=== PATIENT | male | born 1955 | race Caucasian/White ===

== ENCOUNTER 2017-01-15 13:05 | Inpatient (IN) | payer MEDICAID ==
[~2017-01-15] VITALS: Ht 180.3 cm; Wt 81.6 kg
[2017-01-15 13:51] LABS: BASOPHILS 0.1 % (0-2); EOSINOPHILS 0.1 % (0-7); HEMATOCRIT 38.8 % (42.0-54.0); HEMOGLOBIN 12.4 g/dL (13.5-17.5); IMMATURE GRANULOCYTES 0.5 % (0-5); LYMPHOCYTES 4.8 % (15-50); MCH 28.1 pg (26.0-34.0); MEAN PLATELET VOLUME 10.5 fL (7.4-10.4); MONOCYTES 5.9 % (2-11); NEUTROPHILS 88.6 % (40-80); PLATELET COUNT 154 10x3/uL (130-400); RBC 4.41 10x6/uL (4.20-6.10); RDW 13.5 % (11.5-14.5)
[2017-01-15 13:59] LABS: APTT 20.4 SECONDS (22.8-39.4); INR 1.31 (0.85-1.17); PROTIME 16.1 SECONDS (11.6-15.0)
[2017-01-15 14:00] LABS: ALBUMIN 2.8 g/dL (3.4-5.0); ALKALINE PHOSPHATASE 65 U/L (46-116); ALT (SGPT) 17 U/L (10-68); BILIRUBIN - TOTAL 0.67 mg/dL (0.2-1.3); CALC OSMOLALITY 284 mosm/kg (275-300); CALCIUM 7.1 mg/dL (8.5-10.1); CARBON DIOXIDE 27.7 mmol/L (21.0-32.0); CHLORIDE - SERUM 103 mmol/L (98-107); CREATININE - SERUM 1.7 mg/dL (0.6-1.3); GLUCOSE 101 mg/dL (74-106); POTASSIUM - SERUM 3.9 mmol/L (3.5-5.1); PROTEIN - SERUM 5.9 g/dL (6.4-8.2); SODIUM 142 mmol/L (136-145); UREA NITROGEN 17 mg/dL (7-18); eGFR NON AFRICAN AMERICAN 44 mL/min (90-120)
[2017-01-15 14:31] LABS: APPEARANCE HAZY (CLEAR); BILIRUBIN NEGATIVE (NEGATIVE); COLOR YELLOW (YELLOW); GLUCOSE NEGATIVE (NEGATIVE); KETONE NEGATIVE (NEGATIVE); NITRITE NEGATIVE (NEGATIVE); PROTEIN TRACE mg/dL (NEGATIVE); UDS - AMPHET NEGATIVE QUAL (NEGATIVE); UDS - BARB NEGATIVE QUAL (NEGATIVE); UDS - BENZO POSITIVE QUAL (NEGATIVE); UDS - COCAINE NEGATIVE QUAL (NEGATIVE); UDS - OPIATE NEGATIVE QUAL (NEGATIVE); UDS - PCP NEGATIVE QUAL (NEGATIVE); UDS - THC NEGATIVE QUAL (NEGATIVE); UROBILINOGEN NORMAL (NORMAL)
[2017-01-15 14:32] LABS: MAGNESIUM - SERUM 1.7 mg/dL (1.8-2.4)
[2017-01-15 14:33] LABS: BACTERIA FEW /hpf (NONE SEEN); EPITHELIAL CELLS RARE /hpf (0-5); WHITE CELLS - URINE 0-5 /hpf (0-5)
[2017-01-15 14:33] LABS: CREATINE KINASE 824 UL (21-232)
[2017-01-15 14:35] LABS: CKMB 5.3 U/L (0.0-3.6)
--- NOTE | 2017-01-15 19:18 | NUR ---
RECIEVED PT TO FLOOR FROM ED. PT IS ORIENTED TO SELF ONLY AT THIS TIME. IV IS PATENT AND SALINE LOC AT THIS TIME. O2 @ 2 PER NASAL CANNULA. PT IS AMBULATORY WITH ASSISTANCE BUT IS ABLE TO TURN SELF IN BED FOR COMFORT AND SKIN CARE. PT DENIES ANY PAIN AT THIS TIME. NO NEEDS ARE VERBALIZED AT THIS TIME. FAMILY IS AT THE BEDSIDE. SIDE RAILS ARE UP X 3. BED IS IN LOWEST POSITION. EFRAÍN MAT IS PLACED ON FOR SAFETY. CALL LIGHT IS WITHIN REACH.
--- NOTE | 2017-01-15 19:20 | NUR ---
CALLED RADIO COMMENTATOR AND WAS INFORMED THAT THERE ARE NO MONITORS AVAILABLE AT THIS TIME. NAME PUT DOWN ON THE LIST.
--- NOTE | 2017-01-15 19:54 | NUR ---
ADMIT ASSESSMENT COMPLETED. FLUIDS HOOKED UP PER ORDER. MEDICATION GIVEN PER ORDER WITH NO PROBLEMS. NO NEEDS VOICED. FAMILY AT BEDSIDE. SIDE RAILS X 3. BED LOW. EFRAÍN ON. CALL LIGHT IN REACH.
--- NOTE | 2017-01-15 22:05 | NUR ---
PT UNABLE TO VOID AFTER MULTIPLE ATTEMPTS. BLADDER SCAN REVEALED 644ML.
--- NOTE | 2017-01-15 22:20 | NUR ---
CALL PLACED TO LAISHA ABOUT BLADDER SCAN. NEW ORDERS RECIEVED.
--- NOTE | 2017-01-15 23:29 | NUR ---
19F INDWELLING MEDEL PLACED AT THIS TIME. RECIEVED BACK 1000ML CONCENTRATED URINE. PT TOLERATED WELL. FAMILY AT THE BEDSIDE. SIDE RAILS X 3. BED LOW. ALARM ON. CALL LIGHT IN REACH.
[2017-01-16] VITALS: BP 100/59
[2017-01-16 03:20] VITALS: BP 101/59; BMI 25.1
[2017-01-16 04:00] VITALS: BP 114/63
[2017-01-16] MEDS ORDERED: K-TAB10 MEQ PO (04:12)
[2017-01-16] MEDS ORDERED: KLONOPIN0.5 MG PO (04:13)
[2017-01-16] MEDS ORDERED: BENZTROPINE MESY2 MG PO (04:13)
[2017-01-16 04:14] LABS: BASOPHILS 0.1 % (0-2); EOSINOPHILS 0.6 % (0-7); HEMOGLOBIN 11.9 g/dL (13.5-17.5); IMMATURE GRANULOCYTES 0.1 % (0-5); LYMPHOCYTES 15.3 % (15-50); MCH 28.3 pg (26.0-34.0); MCHC 32.2 g/dL (31.0-37.0); MCV 88.1 fL (80.0-100.0); MEAN PLATELET VOLUME 10.7 fL (7.4-10.4); MONOCYTES 8.6 % (2-11); NEUTROPHILS 75.3 % (40-80); PLATELET COUNT 155 10x3/uL (130-400); RDW 13.5 % (11.5-14.5)
[2017-01-16] MEDS ORDERED: SYNTHROID150 MCG PO (04:14)
[2017-01-16] MEDS ORDERED: LEXAPRO20 MG PO (04:14)
[2017-01-16] MEDS ORDERED: ZOCOR40 MG PO (04:14)
[2017-01-16] MEDS ORDERED: ZYPREXA20 MG PO (04:15)
[2017-01-16 04:17] LABS: WBC 7.2 10x3/uL (4.8-10.8)
[2017-01-16 04:29] LABS: ANION GAP 10.3 mmol/L (8-16); CALCIUM 7.2 mg/dL (8.5-10.1); CARBON DIOXIDE 29.3 mmol/L (21.0-32.0); CREATININE - SERUM 1.6 mg/dL (0.6-1.3); POTASSIUM - SERUM 3.6 mmol/L (3.5-5.1)
--- NOTE | 2017-01-16 06:36 | HP ---
PATIENT: MADELEINE CORREA MEDICAL RECORD: [id number] ACCOUNT: [id number] LOCATION:D.MS [id number] : 57 ADMISSION DATE: 01/15/17 HISTORY AND PHYSICAL EXAMINATION DATE OF ADMISSION: 01/15/2017 CHIEF COMPLAINT: Elevated temperature. HISTORY OF PRESENT ILLNESS: The patient is a 61-year-old schizophrenic male who arrived via EMS. Apparently, the patient was found slumped over sink by his caregiver. The patient presented to the Emergency Room. He is normally followed by his PCP, Dr. Haines. The patient is admitted to my service on an unassigned medicine with sepsis and pneumonia. PAST MEDICAL HISTORY: Apparently, he was diagnosed with schizophrenia at 19 to 20 years of age. He is currently followed by Dr. Larson. He has had no other hospitalizations. He has had no surgeries. He has had a history of having hypothyroidism, anxiety, schizophrenia. FAMILY HISTORY: Mother and father both are in their 80s, health is failing. Apparently, the patient does live with his parents. MEDICATIONS: Apparently, he takes KCl 10 mEq p.o. b.i.d., benztropine 2 mg p.o. b.i.d., clonazepam 0.5 b.i.d., levothyroxine 150 mcg once daily, Lexapro 20 mg once a day, simvastatin 40 mg once a day, Zyprexa 20 mg p.o. every day. ALLERGIES: He has known drug allergies. HABITS: None. REVIEW OF SYSTEMS: Unobtainable. PHYSICAL EXAMINATION: VITAL SIGNS: The patient's pulse is 117, respirations 20, blood pressure 112/56, and his O2 sat is 91%. HEENT: Head is normocephalic. No lesions. Ears: TMs clear. Eyes: Pupils equal, round, reactive to light. His extraocular movements intact. Nasal cavity, oral cavity and oropharynx clear. NECK: Supple. There is no adenopathy. HEART: Tachycardic. LUNGS: He has decreased breath sounds in all hfufman. ABDOMEN: Soft, bowel sounds positive. No organomegaly. LABORATORY DATA: CBC: White count is 15,000, hemoglobin 12.4, hematocrit 38.8, and platelets are 154. Sodium 142, potassium 3.9, chloride is 103, CO2 is 27.7, BUN is 17, and creatinine 1.7. Urinalysis showed 2+ blood, 5-10 rbc's, 0-5 wbc's, and few bacteria. Chest x-ray revealed mild central vascular congestion, bilateral interstitial prominence particularly within both lung bases. Findings may relate chronic interstitial changes, acute and chronic processes or pneumonitis cannot be excluded. ASSESSMENT: Febrile illness, possible sepsis, early pneumonia, history of schizophrenia, and hypothyroidism. HISTORY AND PHYSICAL [id number] MADELEINE CORREA PLAN: The patient's condition was discussed with his sister who has power of dial marker. He is a DNR. The patient will have blood cultures, sputum cultures obtained. He will be placed on Levaquin 750 mg IV. Continue supportive care. TRANSINT:[id number] Voice Confirmation ID: [id number] DOCUMENT ID: [id number] ALEX INTERIANO MD at 0636 CC: [id number] DICTATION DATE: 01/15/171745 GREY ROLL WORKER: 01/15/17 1814 ADM IN [id number] [place] [address]
--- NOTE | 2017-01-16 07:05 | NUR ---
REPORT RECEIVED, ASSUMED CARE OF PT. RESTING WITH EYES SHUT, EASILY AROUSED. FAMILY AT BEDSIDE. MEDEL CATHETER IN PLACE, PATENT, DRAINING. L HAND IV INFUSING FLUIDS ORDERED, DRSG C/D/I. NO NEEDS VOICED AT THIS TIME. BED IN LOWEST POSITION, SIDE RAILS UP X 2, CALL LIGHT WITHIN REACH.
[2017-01-16 09:40] VITALS: BP 145/62
[2017-01-16 12:52] VITALS: Ht 180.3 cm; Wt 81.6 kg
--- NOTE | 2017-01-16 14:11 | NUR ---
WITHHELD TX DUE TO FAMILY REQUEST . PT SOUNDLY ASLEEP FAMILY DIDNT WANT HIM WOKEN
[2017-01-16 17:46] VITALS: BP 96/46
--- NOTE | 2017-01-16 19:20 | NUR ---
RECIEVED SHIFT REPORT. PT IS LYING IN BED. PT IS ORIENTED TO SELF ONLY AT THIS TIME. O2 @ 2 PER NASAL CANNULA. MEDEL IS DRAINING URINE BY GRAVITY. PT IS AMBULATORY WITH ASSISTANCE. PT DENIES ANY PAIN AT THIS TIME. IV IS PATENT AND FLUIDS ARE RUNNING PER ORDER. NO NEEDS ARE VERBALIZED AT THIS TIME. FAMILY IS AT THE BEDSIDE. WILL CONTINUE TO MONITOR. SIDE RAILS ARE UP X 3. BED IS IN LOWEST POSITION. BED ALARM IS ON FOR SAFETY. CALL LIGHT IS WITHIN REACH.
[2017-01-16 20:00] VITALS: BP 99/50
--- NOTE | 2017-01-16 21:39 | NUR ---
SHIFT ASSESSMENT COMPLETED. NIGHT MEDS GIVEN WITH NO PROBLEMS. NO NEEDS ARE VOICED. FAMILY AT BEDSIDE. WILL MONITOR. SIDE RAILS X 2. BED LOW. BED ALARM ON. CALL LIGHT IN REACH.
[2017-01-17 04:00] VITALS: BP 112/63
[2017-01-17 05:11] LABS: BASOPHILS 0.1 % (0-2); EOSINOPHILS 0.8 % (0-7); HEMATOCRIT 33.2 % (42.0-54.0); HEMOGLOBIN 10.5 g/dL (13.5-17.5); IMMATURE GRANULOCYTES 0.1 % (0-5); LYMPHOCYTES 11.7 % (15-50); MCH 28.2 pg (26.0-34.0); MCHC 31.6 g/dL (31.0-37.0); MCV 89.2 fL (80.0-100.0); MEAN PLATELET VOLUME 10.9 fL (7.4-10.4); MONOCYTES 7.9 % (2-11); NEUTROPHILS 79.4 % (40-80); PLATELET COUNT 137 10x3/uL (130-400); RBC 3.72 10x6/uL (4.20-6.10); RDW 13.8 % (11.5-14.5); WBC 7.2 10x3/uL (4.8-10.8)
[2017-01-17 05:28] LABS: ANION GAP 10.4 mmol/L (8-16); CARBON DIOXIDE 29.5 mmol/L (21.0-32.0); CREATININE - SERUM 1.2 mg/dL (0.6-1.3); POTASSIUM - SERUM 3.9 mmol/L (3.5-5.1)
[2017-01-17 05:31] LABS: CALCIUM 6.5 mg/dL (8.5-10.1)
--- NOTE | 2017-01-17 08:10 | NUR ---
AWAKE AND ALERT. ORIENTED TO SELF. LUNGS ARE CLEAR BILATERATLLY, OCCASSIONAL DRY COUGH REPORTED. SKIN IS INTACT WITHOUT REDNESS. MEDEL CLAMPED AT THIS TIME WITH CLEAR YELLOW URINE NOTED. IV TO RIGHT FOREARM IS PATNET WITHOUT REDNESS AT ISNERTION SITE. FAMILY AT BEDSIDE. DENIES NEEDS.
[2017-01-17 08:49] VITALS: BP 146/80
--- NOTE | 2017-01-17 11:17 | NUR ---
MEDEL D/C WITH TIP INTACT WITHOUT DIFFICULTY. TOLERATED WITHOUT C/O DISCOMFORT. FAMILY IN ROOM. STAFF GIVING BED BATH, LINEN CHANGED AND SHAVED.
--- NOTE | 2017-01-17 11:58 | NUR ---
Patient Name: MADELEINE CORREA Admission Status: ER Accout number: [id number] Admission Date: 01-15-2017 : 1955 Admission Diagnosis: Attending: ALEX INTERIANO Current LOS: 2 Anticipated DC Date: 01-22-2017 Planned Disposition: Home Primary Insurance: MEDICAID [place] Discharge Planning Comments: CM MET WITH PATIENTS (JANINA) REGARDING D/C NEEDS AND PLANS. PATIENTS SISTER WILL DRIVE HIM HOME AT DISCHARGE. PATIENT HAS A RAMP TO ENTER HOME AND THE STAIRS INSIDE ARE BLOCKED. PATIENT HAS HELP M-W-F FROM 11:30-4:30 FROM [facility]. PATIENT LIVES WITH HIS PARENTS WHOM ALSO HAS CAREGIVERS. PATIENTS SISTER GOES OUT EVERY EVENING TO HELP. PATIENTS PCP IS DR. JOHNS AND USES [facility]. PATIENT HAS A WALKER AND SHOWER CHAIR AT HIS HOME. CM WILL CONTINUE TO FOLLOW PATIENT WITH D/C NEEDS AND PLANS. PCP DR. JOHNS [facility] [phone] JANINA PEPE (SISTER) [phone] Filter Tank Operator: Maeve Basurto How many steps to enter\exit or inside your home? RAMP 0 * PCP DR. JOHNS 0 * Pharmacy [facility] 0 * Preadmission Environment Home with Family 0 * ADLs Partial Dependent 0 * Partial ADLs (Assistance needed) Bathing Dressing Medication Management 0 * Equipment Shower Chair Walker 0 * List name and contact numbers for known caregivers / representatives who currently or will assist patient after discharge: JANINA PEPE (SISTER) [phone] 0 * Community resources currently utilized Other 0 * Please name any agencies selected above. [facility] [employer] 0 * Additional services required to return to the preadmission environment? Yes 0 * Can the patient safely return to the preadmission environment? Yes 0 * Has this patient been hospitalized within the prior 30 days at any hospital? No 0 Grand Total: 0
[2017-01-17 13:46] VITALS: BP 99/69
--- NOTE | 2017-01-17 15:00 | NUR ---
UP TO BR WITH 2 PERSON MIN ASSIST. NO URINE OR STOOL AT THIS TIME.
--- NOTE | 2017-01-17 16:30 | NUR ---
UP TO BR AGAIN WITH NO RESULTS. FAMILY IN ROOM.
--- NOTE | 2017-01-17 18:30 | NUR ---
BLADDER SCAN SHOWS 175CC FLUID. UP TO BR WITH ONE PERSON MIN ASSIST. NO RESULTS AT THIS TIME. WILL CONTINUE TO MONITOR.
--- NOTE | 2017-01-17 19:20 | NUR ---
RECIEVED SHIFT REPORT. PT IS LYING IN BED. ALERT TO SELF ONLY AT THIS TIME. IV IS PATENT AND FLUIDS ARE RUNNING PER ORDER. O2 @ 2 PER NASAL CANNULA. PT IS AMBULATORY WITH ASSISTANCE. PT DENIES ANY PAIN AT THIS TIME. NO NEEDS ARE VERBALIZED AT THIS TIME. FAMILY IS AT THE BEDSIDE. SIDE RAILS ARE UP X 3. BED IS IN LOWEST POSITION. BED ALARM IS ON FOR SAFETY. CALL LIGHT IS WITHIN REACH.
[2017-01-17 20:00] VITALS: BP 102/56
--- NOTE | 2017-01-17 21:26 | NUR ---
SHIFT ASSESSMENT COMPLETED. NIGHT MEDS GIVEN WITH NO PROBLEMS. NYSTATIN POWDER APPLIED TO GROIN. NO NEEDS ARE VOICED. WILL MONITOR. FAMILY AT BEDSIDE. SIDE RAILS X 2. BED LOW. BED ALARM ON. CALL LIGHT IN REACH.
[2017-01-18] VITALS: BP 103/59
[2017-01-18 04:00] VITALS: BP 122/79
[2017-01-18 06:08] LABS: BASOPHILS 0.2 % (0-2); EOSINOPHILS 3.8 % (0-7); HEMATOCRIT 31.9 % (42.0-54.0); HEMOGLOBIN 10.2 g/dL (13.5-17.5); IMMATURE GRANULOCYTES 0.2 % (0-5); LYMPHOCYTES 11.5 % (15-50); MCH 28.7 pg (26.0-34.0); MCV 89.9 fL (80.0-100.0); MEAN PLATELET VOLUME 10.8 fL (7.4-10.4); MONOCYTES 8.2 % (2-11); NEUTROPHILS 76.1 % (40-80); PLATELET COUNT 146 10x3/uL (130-400); RBC 3.55 10x6/uL (4.20-6.10); RDW 13.8 % (11.5-14.5); WBC 6.6 10x3/uL (4.8-10.8)
[2017-01-18 06:35] LABS: ANION GAP 10.1 mmol/L (8-16); CARBON DIOXIDE 29.9 mmol/L (21.0-32.0); CREATININE - SERUM 1.2 mg/dL (0.6-1.3)
[2017-01-18] MEDS ORDERED: LEVAQUIN750 MG PO (06:42)
[2017-01-18 06:48] LABS: CALCIUM 6.9 mg/dL (8.5-10.1)
--- NOTE | 2017-01-18 07:00 | NUR ---
REPORT RECIEVED ASSUMED CARE. PATIENT IN BED WITH IV INTACT. NO COMPLAINTS AT THIS TIME. FAMILY AT BEDSIDE. CALL LIGHT WITHIN REACH.
[2017-01-18 09:03] VITALS: BP 109/62
--- NOTE | 2017-01-18 11:19 | NUR ---
PATIENT RECIEVED DISCHARGE INSTRUCTIONS, WITH FAMILY AT BEDSIDE. VERBALIZED UDNERSTANDING. IV REMOVED WITH CATH TIP INTACT. FAMILY HELPING PATIENT GET DRESSED FOR DC. CALL LIGHT WITHIN REACH.
--- NOTE | 2017-02-05 06:54 | DS ---
PATIENT:MADELEINE CORREA :57 MEDICAL RECORD: [id number] DISCHARGE SUMMARY ADMISSION DATE: 01/15/17 DISCHARGE DATE: 01/18/17 DATE OF ADMISSION: 01/15/2017 DATE OF DISCHARGE: 01/18/2017 CONDITION ON DISCHARGE: Improved. ADMITTING DIAGNOSES: Early pneumonia, possible sepsis, history of schizophrenia, and hypothyroidism. DISCHARGE DIAGNOSES: Pneumonia, schizophrenia, and hypothyroidism. HOSPITAL COURSE: The patient is a 61-year-old schizophrenic male who arrived to the ER via ambulance. Apparently, the patient was found slumped over and sent by his caregiver. The patient presented to the Emergency Room. He normally is followed by his PCP, Dr. Haines, who is not on staff at [facility]. Therefore, the patient was admitted to my service on unassigned medicine. PHYSICAL EXAMINATION: VITAL SIGNS: In the Emergency Room, pulse 117, respirations 20, blood pressure was 112/56, and O2 sat was 91%. HEENT: Unremarkable. NECK: Supple. There is no adenopathy. No meningeal signs could be appreciated. LUNGS: He had decreased breath sounds in all huffman. He was tachycardic. ABDOMEN: Soft. Bowel sounds positive. LABORATORY DATA: White count elevated at 15,000, hemoglobin 12.4, hematocrit 38.8, and platelets were 154. Sodium was 142, potassium 3.9, chloride 102, CO2 was 27.7, BUN 17, and creatinine is 1. Urinalysis showed 2+ blood, 5-10 rbc's, and 0-5 wbc's. DIAGNOSTIC DATA: Chest x-ray revealed mild central vascular congestion and bilateral interstitial prominence, particularly within both lungs. Findings were felt to be chronic interstitial changes. [id number] process of pneumonitis could not be excluded. The patient was admitted and placed on Levaquin 750 mg IV. Sputum cultures were obtained as well as blood cultures. The patient was a DNR. His sister did have power of men's golf coach. His blood cultures returned negative. On the , the patient's chest x-ray showed bilateral atelectasis. No significant interval changes were detected. On the , the patient was stable. It was felt he could be discharged. White count was down to 6.6. He was slightly anemic with hemoglobin 10.2, hematocrit 31.9, and his platelets were 146. Sodium 142, potassium 4, chloride is 106, BUN is 13, and creatinine is 1.2. The patient was discharged home. His medications include KCl 10 mEq one p.o. b.i.d., Cogentin 2 mg p.o. b.i.d., Klonopin 0.5 mg p.o. b.i.d., Synthroid 150 mcg once a day, Lexapro 200 mg p.o. daily, Zocor 40 mg once a day, Zyprexa 20 mg p.o. at bedtime, and Levaquin 750 mg for total of 10 days. The patient will follow up with Dr. Haines on January 25. He will be on regular diet. His activities are ad maribel. DISCHARGE SUMMARY REPORT [id number] MADELEINE CORREA TRANSINT:[id number] Voice Confirmation ID: [id number] DOCUMENT ID: [id number] ALEX INTERIANO MD at 0654 CC: [id number] DICTATION DATE: 02/04/171126 WORKFORCE PLANNING ANALYST: 02/04/17 1450 DIS IN 01/18/17 [id number] [place] [address]
== END 2017-01-18 11:22 | disposition home or self-care (01) | DRG 195 ==
LOC: D.ER 13:05 → D.MS 16:45
PROVIDERS: Emergency Medicine; ADMIT Family Medicine
DX: J18.9 Pneumonia, unspecified organism (principal); Z66 Do not resuscitate; F20.9 Schizophrenia, unspecified; E03.9 Hypothyroidism, unspecified